=== PATIENT | male | born 1970 | race Caucasian/White ===

== ENCOUNTER → 2018-11-17 | Outpatient (CLI) | payer BC, OTHER | LOC: MRI 14:06 | DX: M25.462 Effusion, left knee (principal); M71.22 Synovial cyst of popliteal space [Baker], left knee; M25.862 Other specified joint disorders, left knee ==

== ENCOUNTER → 2021-01-02 | Outpatient (CLI) | payer BC, OTHER | LOC: LAB 10:24 | PROVIDERS: ATTEND Nurse Practitioner | DX: R05 Cough (principal); R50.9 Fever, unspecified; Z20.822 Contact with and (suspected) exposure to COVID-19 ==